=== PATIENT | male | born 1955 | race African-American/Black ===

== ENCOUNTER 2021-04-06 08:48 | Emergency (ER) | payer BC, OTHER ==
[~2021-04-06] VITALS: Ht 177.8 cm; Wt 93.0 kg
[2021-04-06 08:55] VITALS: BP 149/94
[2021-04-06] MEDS ORDERED: FLUORESCEIN SODIUM 1MG/STRIP RIGHTEYE ONE (09:15)
[2021-04-06] MEDS ORDERED: TETRACAINE 0.5% OPHTH DROPS 4ML RIGHTEYE ONE (09:15)
[2021-04-06] MEDS ORDERED: TOBRAD RIGHTEYE (09:40)
[2021-04-06] MEDS ORDERED: TOBRAMYCIN 0.3% OPHTH DROPS 5ML RIGHTEYE STA (09:40)
== END 2021-04-06 10:21 | disposition home or self-care (01) ==
LOC: ER 08:48
DX: H11.31 Conjunctival hemorrhage, right eye (principal)
CPT/HCPCS: 99283